=== PATIENT | male | born 1950 | race Caucasian/White ===

== ENCOUNTER 2016-08-04 21:38 | Emergency (ER) | payer MEDICARE, OTHER ==
[~2016-08-04 21:38] MED LIST: FENO160T2 PO; ISOS30TA3 PO; LISI-363 PO; LOPR100T PO; MAXZ25 PO; PROC60TA PO; SIMV40 PO; TRAZ150T75 PO; VENL75 PO
[2016-08-04 21:41] VITALS: BP 202/88; PULSE 102; RESP 20; TEMP 97.9; O2SAT 90
[2016-08-04 21:49] VITALS: BP 202/89; PULSE 54; RESP 22; TEMP 98.3; O2SAT 95
[2016-08-04 22:04] VITALS: BP 163/69; PULSE 51; RESP 17; O2SAT 96
[2016-08-04] MEDS ORDERED: ASPI325T PO (22:10)
[2016-08-04] MEDS ORDERED: NIFE15TA PO (22:10)
[2016-08-04] MEDS ORDERED: FENO160T PO (22:10)
[2016-08-04] MEDS ORDERED: TRAZ150T75 PO (22:10)
[2016-08-04] MEDS ORDERED: VITA500T49 PO (22:10)
[2016-08-04] MEDS ORDERED: CHOL1CHW5 CHEW (22:10)
[2016-08-04] MEDS ORDERED: SIMV40TA PO (22:10)
[2016-08-04] MEDS ORDERED: PRIL20CA9 PO (22:10)
[2016-08-04] MEDS ORDERED: ISOS30TA3 PO (22:10)
[2016-08-04] MEDS ORDERED: NITR0.4S SL (22:10)
[2016-08-04] MEDS ORDERED: SERT-132 PO (22:10)
[2016-08-04] MEDS ORDERED: TRIA37.5 PO (22:10)
[2016-08-04] MEDS ORDERED: SODIUM CHLORIDE 0.9% FLUSH 5 ML FLUSH IVF PRN (22:15)
[2016-08-04 22:29] LABS: AUTOMATED NEUTROPHIL # 3.4 TH/MM3 (1.8-7.7); BASOPHIL % 0.6 % (0.0-2.0); EOSINOPHIL # 0.2 TH/MM3 (0-0.4); EOSINOPHIL % 2.8 % (0.0-4.0); HEMATOCRIT 38.2 % (39.0-51.0); HEMO FLAGS DIFF FINAL; LYMPH % 25.6 % (9.0-44.0); LYMPHOCYTE # 1.4 TH/MM3 (1.0-4.8); MEAN CORPUSCULAR HEMOGLOBIN 30.9 PG (27.0-34.0); MEAN CORPUSCULAR HGB CONC 34.4 % (32.0-36.0); MONO % 10.7 % (0.0-8.0); NEUT % 60.3 % (16.0-70.0); PLATELET COUNT 163 TH/MM3 (150-450); RED BLOOD COUNT 4.25 MIL/MM3 (4.50-5.90); WHITE BLOOD COUNT 5.7 TH/MM3 (4.0-11.0)
--- NOTE | 2016-08-04 22:32 | RADRPT ---
EXAM DATE/TIME: 08/04/2016 22:19 [place] COMPARISON: CHEST SINGLE AP, January 01, 2016, 22:46. INDICATIONS : Shortness of breath MEDICAL HISTORY : Hypertension. SURGICAL HISTORY : CABG. ENCOUNTER: Initial ACUITY: 1 day PAIN SCORE: 0/10 LOCATION: Bilateral chest FINDINGS: No infiltrate, effusion or pneumothorax. Heart size stable, upper limits of normal. Patient has had p revious median sternotomy. CONCLUSION: No evidence of acute cardiopulmonary disease. Pankaj Mejía MD on August 04, 2016 at 22:30 Board Certified Radiologist. This report was verified electronically.
[2016-08-04 22:45] LABS: APTT (PATIENT) 26.5 SEC (24.3-30.1); PROTHROMBIN TIME - PATIENT 10.5 SEC (9.8-11.6)
[2016-08-04 22:53] LABS: ANION GAP 10 MEQ/L (5-15); BICARBONATE 24.8 MEQ/L (21.0-32.0); BLOOD UREA NITROGEN 31 MG/DL (7-18); CHLORIDE 105 MEQ/L (98-107); GLOMERULAR FILTRATION RATE 51 ML/MIN (>89); MAGNESIUM 1.8 MG/DL (1.5-2.5); POTASSIUM 3.8 MEQ/L (3.5-5.1); SODIUM (NA) 140 MEQ/L (136-145)
[2016-08-04 22:57] LABS: CREATINE KINASE 109 U/L (39-308)
[2016-08-04 23:09] LABS: CKMB 1.4 NG/ML (0.5-3.6)
[2016-08-04] MEDS ORDERED: SODIUM CHLOR 0.9% 1000 ML INJ 1,000 ML IV ONE (23:15)
--- NOTE | 2016-08-05 01:04 | PD ---
HPI Chief Complaint: Chest Pain Time Seen by Provider: 21:48 Travel History International Travel<30 days: No Contact w/Intl Traveler<30days: No Traveled to known affect area: No History of Present Illness HPI This is a 65 year old male presents to the ER for evaluation of chest pain. Patient states feels heavy in the middle of his chest with radiation to the left elbow on and off for the past week. Current episode of pain started approximately 1 hour [employer]. Admitted December 2015 ago with moralesr and had elevated TN at that time. FOllows with Dr. Vasquez and has an appoitment tomorrow morning. Last stress 6-8 months ago with Pedro and had a "negative stress" per her consultation note in December. Patient states pain got better with nitroglycerin, worsens with exertion. History of HTN, HLD. Has been taking meds. Recent change from effexor to sertraline. Mild SOB with CP starts. PFSH Past Medical History Arthritis: Yes Cancer: Yes (PROSTATE) Cardiovascular Problems: Yes High Cholesterol: Yes Chest Pain: Yes Diabetes: Yes Diminished Hearing: No GERD: Yes Hypertension: Yes Immune Disorder: No Reproductive: Yes (ERECTILE DYSFUNCTION) Respiratory: No Myocardial Infarction: Yes Tetanus Vaccination: Unknown Past Surgical History Abdominal Surgery: Yes (HERNIA REPAIR) Cardiac Surgery: Yes (QUAD BYPASS) Social History Alcohol Use: No Tobacco Use: No Substance Use: No Allergies-Medications (Allergen,Severity, Reaction): Coded Allergies: No Known Allergies (Unverified , 08/04/16) Reported Meds & Prescriptions Reported Meds & Active Scripts Active Reported Nitrostat SL (Nitroglycerin) 0.4 Mg Subl 0.4 Mg SL DIRECTED PRN 1 tablet under the tongue as needed for chest pain. Repeat every 5 minutes for a total of 3 DOSES or call 911 if NO relief. Simvastatin 40 Mg Tab 40 Mg PO HS Vitamin D3 (Cholecalciferol) 2,000 Unit Chew 2,000 Units CHEW DAILY Vitamin B12 (Cyanocobalamin) 500 Mcg Tab 1,000 Mcg PO DAILY Sertraline (Sertraline HCl) 50 Mg Tab 50 Mg PO DAILY Trazodone (Trazodone HCl) 150 Mg Tab 225 Mg PO HS Prilosec (Omeprazole) 20 Mg Cap 20 Mg PO DAILY Nifedical XL (Nifedipine) 60 Mg Tab 60 Mg PO DAILY Isosorbide Mononitrate ER (Isosorbide Mononitrate) 30 Mg Sari 30 Mg PO BID Fenofibrate 160 Mg Tab 160 Mg PO DAILY Triamterene-Hydrochlorothiazide 37.5-25 Mg Tab 0.5 Tab PO DAILY Aspirin 325 Mg Tab 325 Mg PO DAILY Review of Systems Except as stated in HPI: all other systems reviewed are Neg Physical Exam Narrative GENERAL: WD/WN in nad SKIN: Warm and dry. HEAD: Atraumatic. Normocephalic. EYES: Pupils equal and round. No scleral icterus. No injection or drainage. ENT: No nasal bleeding or discharge. Mucous membranes pink and moist. NECK: Trachea midline. No JVD. CARDIOVASCULAR: Regular rate and rhythm. RESPIRATORY: No accessory muscle use. Clear to auscultation. Breath sounds equal bilaterally. GASTROINTESTINAL: Abdomen soft, non-tender, nondistended. Hepatic and splenic margins not palpable. MUSCULOSKELETAL: Extremities without clubbing, cyanosis, or edema. No obvious deformities. NEUROLOGICAL: Awake and alert. No obvious cranial nerve deficits. Motor grossly within normal limits. Five out of 5 muscle strength in the arms and legs. Normal speech. PSYCHIATRIC: Appropriate mood and affect; insight and judgment normal. Data Data Last Documented VS Vital Signs Date Time Temp Pulse Resp B/P Pulse Ox O2 Delivery O2 Flow Rate FiO2 08/04/16 22:04 51 17 163/69 96 Room Air 08/04/16 21:49 98.3 Orders Electrocardiogram (08/04/16 22:01) Basic Metabolic Panel (Bmp) (08/04/16 22:01) Ckmb (Isoenzyme) Profile (08/04/16 22:01) Complete Blood Count With Diff (08/04/16 22:01) Magnesium (Mg) (08/04/16 22:01) Prothrombin Time / Inr (Pt) (08/04/16 22:01) Act Partial Throm Time (Ptt) (08/04/16 22:01) Troponin I (08/04/16 22:01) Chest, Single Ap (08/04/16 22:01) Ecg Monitoring (08/04/16 22:01) Bilateral Bp Monitoring (08/04/16 22:01) Iv Access Insert/Monitor (08/04/16 22:01) Oximetry (08/04/16 22:01) Oxygen Administration (08/04/16 22:01) Sodium Chloride 0.9% Flush (Ns Flush) (08/04/16 22:15) CKMB (08/04/16 22:05) CKMB% (08/04/16 22:05) Sodium Chlor 0.9% 1000 Ml Inj (Ns 1000 M (08/04/16 23:15) Troponin I (08/04/16 23:59) Labs Laboratory Tests Test 08/04/16 08/05/16 22:05 00:00 White Blood Count 5.7 TH/MM3 Red Blood Count 4.25 MIL/MM3 Hemoglobin 13.1 GM/DL Hematocrit 38.2 % Mean Corpuscular Volume 90.0 FL Mean Corpuscular Hemoglobin 30.9 PG Mean Corpuscular Hemoglobin 34.4 % Concent Red Cell Distribution Width 13.0 % Platelet Count 163 TH/MM3 Mean Platelet Volume 9.9 FL Neutrophils (%) (Auto) 60.3 % Lymphocytes (%) (Auto) 25.6 % Monocytes (%) (Auto) 10.7 % Eosinophils (%) (Auto) 2.8 % Basophils (%) (Auto) 0.6 % Neutrophils # (Auto) 3.4 TH/MM3 Lymphocytes # (Auto) 1.4 TH/MM3 Monocytes # (Auto) 0.6 TH/MM3 Eosinophils # (Auto) 0.2 TH/MM3 Basophils # (Auto) 0.0 TH/MM3 CBC Comment DIFF FINAL Differential Comment Prothrombin Time 10.5 SEC Prothromb Time International 1.0 RATIO Ratio Activated Partial 26.5 SEC Thromboplast Time Sodium Level 140 MEQ/L Potassium Level 3.8 MEQ/L Chloride Level 105 MEQ/L Carbon Dioxide Level 24.8 MEQ/L Anion Gap 10 MEQ/L Blood Urea Nitrogen 31 MG/DL Creatinine 1.41 MG/DL Estimat Glomerular Filtration 51 ML/MIN Rate Random Glucose 116 MG/DL Calcium Level 8.9 MG/DL Magnesium Level 1.8 MG/DL Total Creatine Kinase 109 U/L Creatine Kinase MB 1.4 NG/ML Troponin I 0.02 NG/ML 0.03 NG/ML [facility] Medical Decision Making Medical Screen Exam Complete: Yes Emergency Medical Condition: Yes Differential Diagnosis ACS, AMI, CAD, dissection unlikely, anxiety, PE unlikely. Narrative Course Patient roomed in ER. Patient states symptoms nearly resolved on arrival. Offered pain medication and he declined. Patient troponin and EKG negative x 2 in ER. Discussed with him he has fairly classic anginal symptoms and i recommended to him to stay in [facility]. He states he would much rather follow up with Dr. Vasquez tomorrow. Discussed and increase in chest pain should prompt emergent return to ED. Otherwise i think that following up tomorrow morning is reasonable though i did discuss with him that if he stayed in hospital and had deterioration or MACE he would be better served to be already in the hospital. I discussed with him i cannot assure him that the pain is not his heart and given risk factors he is 12-16 percent chance of MACE over 30 days (HEART score). He verbalized and understands risks of MACE including and permanent disability and wants to go home. Discussed importance of following up tomorrow with Dr. Vasquez. Discussed return to ED criteria. Diagnosis Primary Impression: Chest pain Qualified Code: R07.9 - Chest pain, unspecified type Additional Instructions: Follow-up with Dr. Vasquez in the morning as scheduled. Disposition: 01 DISCHARGE HOME Condition: Stable Jose Gonzalez MD Aug 05, 2016 01:03
--- NOTE | 2016-08-05 16:50 | EKG ---
Date Performed: 08/04/2016 Time Performed: 21:50:30 PTAGE: 65 years EKG: SINUS BRADYCARDIA LEFT VENTRICULAR HYPERTROPHY AND ST-T CHANGE Since previous tracing, no s ignificant change noted ABNORMAL ECG PREVIOUS TRACING : 01/02/2016 13.58 DOCTOR: Carlos Jama Interpretating Date/Time 08/05/2016 16:48:50
--- NOTE | 2016-08-05 16:51 | EKG ---
Date Performed: 08/05/2016 Time Performed: 00:13:46 PTAGE: 65 years EKG: SINUS BRADYCARDIA MODERATE INTRAVENTRICULAR CONDUCTION DELAY MINIMAL VOLTAGE CRITERIA FOR L VH, CONSIDER NORMAL VARIANT MODERATE T-WAVE ABNORMALITY, CONSIDER INFERIOR ISCHEMIA Since previous tr acing, no significant change noted ABNORMAL ECG PREVIOUS TRACING : 08/04/2016 21.50 DOCTOR: Carlos Jama Interpretating Date/Time 08/05/2016 16:49:30
== END 2016-08-05 01:23 | disposition home or self-care (01) ==
LOC: NEPA 21:38
DX: R07.9 Chest pain, unspecified (principal); R94.31 Abnormal electrocardiogram [ECG] [EKG]; I10 Essential (primary) hypertension
CPT/HCPCS: 71010; 80048; 82550; 82552; 83735; 84484; 85025; 85610; 85730; 93005; 99285; J7030